=== PATIENT | female | born 1990 | race Two or more races ===

== ENCOUNTER → 2024-07-22 09:09 | Outpatient (REF) | payer BC, SELFPAY | LOC: WDC 09:09 | PROVIDERS: ATTENDING PHYSICIAN Obstetrics & Gynecology; FAMILY PHYSICIAN Nurse Practitioner Family | DX: N63.10 Unspecified lump in the right breast, unspecified quadrant (principal); N63.14 Unspecified lump in the right breast, lower inner quadrant | CPT/HCPCS: 76642; 77062; 77066 ==

== ENCOUNTER 2024-10-28 12:01 | Emergency (ER) | payer BC, SELFPAY ==
[2024-10-28 12:09] VITALS: BP 161/98
--- NOTE | 2024-10-28 14:08 | ED.GENMED ---
History of Present Illness
General
Chief Complaint: Head Injury
Source: patient
Exam Limitations: none
Time Seen by Provider: 10/28/24 12:18
History of Present Illness
History of Present Illness:
34-year-old female hit the top of her head on the car door. Complaining of some ongoing nausea. Some lightheadedness. [place] like her depth perception was off. No neck pain no other injury or complaint
Past History
Past History
ED Past Medical History: Other (Pseudotumor cerebri)
ED Past Surgical History: Tonsilectomy
Review of Systems
Review of Systems
All Other Systems: Not applicable
Neurological: Denies weakness or numbness
Phy Exam
Physical Exam
Physical Exam:
GENERAL: Alert and oriented in no apparent distress. Tenderness to the superior scalp with no hematoma or swelling or depression
EYE: Orbits normal. Extraocular muscles intact
NECK: Supple, nontender
ENT: Pharynx without erythema
CARDIAC: Regular rate and rhythm without any obvious murmurs.
LUNGS: Clear breath sounds,normal
ABDOMEN: Soft, without focal tenderness or distention
NEUROLOGICAL: Alert and oriented , grossly non-focal
SKIN: Warm and dry
PSYCH: Normal and appropriate interaction.
Course
Orders/Labs/Results
Orders:
Orders
10/28/24 12:25
CT Head W/o Iv Contrast Urgent
Comment:
Reason For Exam: head injury. nausea. dizzy
Vital Signs
Initial and Last Documented VS:
Initial Vital Signs
Temp Pulse Resp BP Pulse Ox
98.4 F 73 16 161/98 98
10/28/24 12:09 10/28/24 12:09 10/28/24 12:09 10/28/24 12:09 10/28/24 12:09
Last Documented Vital Signs
Temp Pulse Resp BP Pulse Ox
98.4 F 73 16 161/98 98
10/28/24 12:09 10/28/24 12:09 10/28/24 12:09 10/28/24 12:09 10/28/24 12:09
*Radiology
Radiology exam reviewed: radiology read reviewed (No acute findings.)
*Pulse Oximetry
Patient hypoxic: no
*Critical Care Note
Total Time (30-74mins, 75-104mins- exclusive of procedures): Not Applicable
Update Note
Update Note:
Medically stable. Copy of CT report given to patient to follow-up. Discussed with radiology. Feel very very low suspicion for any serious etiology but patient will follow-up
ED Attending Note
-
Portions of this chart may have been created with voice recognition software.� Occasional wrong word or��sound alike� substitutions may have occurred due to the inherent limitations of voice recognition software.
Discharge Plan
Departure
Patient Disposition: Home (Routine Discharge)
Date of Disposition: 10/28/24
Time of Disposition: 14:10
Patient with high blood pressure during this ER visit?: Yes
Discharge Problem:
Head injury/concussion, Incidental finding on CT
Instructions: Concussion, Adult (DC), Head Injury in Adults (DC), BLOOD PRESSURE
Activity Restrictions/Additional Instructions:
Follow-up closely with your primary physician
Follow-up the CT scan with outpatient MRI
Interventions
Interventions:
*Risk Screen - Suicide Last Done: 10/28/24 12:09
*General Assessment Last Done: 10/28/24 12:09
*Neglect/Abuse Screening Last Done: 10/28/24 12:09
*ED COVID-19 Vaccine History Last Done: 10/28/24 12:15
ED- Neurological Assessment Last Done: 10/28/24 12:15
ED-Skin Assessment Last Done: 10/28/24 12:15
Discharge Date and Time
Print Language: KHMER
[2024-10-28] MEDS: TYLENOL 650 MG PO (14:15)
== END 2024-10-28 14:22 | disposition home or self-care (01) ==
LOC: EMR 12:01
PROVIDERS: EMERGENCY PHYSICIAN Emergency Medicine; FAMILY PHYSICIAN Nurse Practitioner Family
DX: S06.0XAA Concussion with loss of consciousness status unknown, initial encounter (principal); W22.8XXA Striking against or struck by other objects, initial encounter
CPT/HCPCS: 99284; 70450